=== PATIENT | female | born 1990 | race Caucasian/White ===

== ENCOUNTER 2021-02-15 22:28 | Emergency (ER) | payer BC ==
[~2021-02-15] VITALS: Ht 177.8 cm; Wt 84.1 kg
[~2021-02-15 22:28] MED LIST: APRI 0.15 MG-0.1 TAB PO; MULTIPLE VITAMI1 TAB PO; NORCO 325 MG-7.1 TAB PO; PERCOCET 325 MG1 TA2 PO; ZOFRAN 4MG T4 MG/TAB PO; ZOFRAN ODT4 MG PO
[2021-02-16] MEDS ORDERED: PERCOCET 325 MG1 TA2 PO (00:22)
[2021-02-16 00:53] VITALS: BP 139/83; PULSE 94; TEMP 97.9
== END 2021-02-16 00:53 | disposition home or self-care (01) ==
LOC: COL.ER 22:28
DX: S92.351A Displaced fracture of fifth metatarsal bone, right foot, initial encounter for closed fracture (principal); X50.1XXA Overexertion from prolonged static or awkward postures, initial encounter
CPT/HCPCS: L4386

== ENCOUNTER 2022-04-06 12:05 | Emergency (ER) | payer BC ==
[~2022-04-06] VITALS: Ht 177.8 cm; Wt 81.8 kg
[2022-04-06 12:11] VITALS: TEMP 98.2
[2022-04-06 12:43] LABS: COLLECTION METHOD CLEAN CATCH
[2022-04-06 13:16] LABS: BASO # 0.1 K/mm3 (0.0-0.2); BASO % 1.4 % (0.0-2.0); EOS # 0.1 K/mm3 (0.0-0.7); EOS % 1.2 % (0.0-4.0); GRAN # 4.3 K/mm3 (1.4-6.5); GRAN % 66.2 % (42.2-75.2); HEMATOCRIT 40.9 % (37.0-47.0); HEMOGLOBIN 13.6 g/dl (12.5-16.0); LYMPH # 1.6 K/mm3 (1.2-3.4); LYMPH % 25.3 % (20.0-51.0); MEAN CELL VOLUME 86 fl (80.0-100.0); MEAN CORPUSCULAR HEMOGLOBIN 29 pg (27-31); MEAN CORPUSCULAR HGB CONC 33 g/dl (33.0-37.0); MEAN PLATELET VOLUME 9.3 fl (7.4-10.4); MONO # 0.4 K/mm3 (0.1-0.6); MONO % 5.6 % (1.7-9.3); PLATELET COUNT 259 K/mm3 (130-400); RED BLOOD COUNT 4.74 M/mm3 (4.10-5.30)
[2022-04-06 13:20] LABS: MUCOUS Present (NOT PRESENT); URINE BACTERIA None Seen /hpf (NONE SEEN); URINE RBC 0-2 /hpf (0-2)
[2022-04-06 13:21] LABS: PH 8.5 (5.0-8.5); URINE APPEARANCE Clear (CLEAR/HAZY); URINE BLOOD Negative (NEGATIVE); URINE COLOR Yellow (YELLOW); URINE GLUCOSE Negative (NEGATIVE); URINE KETONE Negative (NEGATIVE); URINE NITRATE Negative (NEGATIVE); URINE PROTEIN(semi-quant) TRACE (NEGATIVE); URINE UROBILINOGEN 0.2 E.U/dL (0.2-1.0)
[2022-04-06 13:35] LABS: ALBUMIN 4.3 gm/dL (3.5-5.0); CALCIUM 9.5 mg/dL (8.4-10.2); CREATININE, serum 0.85 mg/dL (0.57-1.11); POTASSIUM 3.8 mmol/L (3.5-4.5); TOTAL PROTEIN 8.1 gm/dL (6.2-8.1)
[2022-04-06 15:47] VITALS: BP 119/73; PULSE 72
== END 2022-04-06 16:09 | disposition home or self-care (01) ==
LOC: COL.ER 12:05
PROVIDERS: Family Medicine; Nurse Practitioner
DX: R10.32 Left lower quadrant pain (principal); Z98.84 Bariatric surgery status; Z32.02 Encounter for pregnancy test, result negative
CPT/HCPCS: J2270; J2405; J7030; Q9967

== ENCOUNTER 2023-07-03 14:03 | Outpatient (CLI) | payer BC ==
[~2023-07-03] VITALS: Ht 177.8 cm; Wt 114.4 kg
[2023-07-03] MEDS ORDERED: LR 1,000 ML IV PRN (14:30)
--- NOTE | 2023-07-03 14:30 | NUR ---
PT ORIENTED TO UNIT AND CHANGED INTO GOWN. PLACED ON MONITORS. VS WNL. FHT'S CATAGORY 1 FOR BOTH BABIES. SHE REPORTS BACK PAIN THAT HAS COME AND GONE SINCE LAST NIGHT THAT HAS NOT BEEN RELEIVED BY ANYTHING SHE HAS TRIED. PT IS FEELING REGULAR MOVMENT FROM BOTH BABIES. SHE REPORTS NO LEAKING OF FLUID AND NO VB.
[2023-07-03 14:35] LABS: COLLECTION METHOD CLEAN CATCH
[2023-07-03 14:45] VITALS: BP 132/78; PULSE 91; TEMP 98.8
[2023-07-03 14:49] LABS: URINE APPEARANCE CLEAR (CLEAR/HAZY); URINE BLOOD NEGATIVE (NEGATIVE); URINE COLOR YELLOW (YELLOW); URINE GLUCOSE NEGATIVE (NEGATIVE); URINE KETONE NEGATIVE (NEGATIVE); URINE NITRATE NEGATIVE (NEGATIVE); URINE PROTEIN(semi-quant) NEGATIVE (NEGATIVE); URINE UROBILINOGEN 0.2 E.U/dL (0.2-1.0)
[2023-07-03 15:15] VITALS: BP 127/75; PULSE 99
[2023-07-03] MEDS ORDERED: Acetaminophen 500 MG TAB PO PRN (15:15)
[2023-07-03] MEDS ORDERED: FOCALIN10 MG PO (15:38)
[2023-07-03] MEDS ORDERED: NATURAL IRON65 MG PO (15:40)
[2023-07-03 15:45] VITALS: BP 130/76; PULSE 91
[2023-07-03] MEDS ORDERED: Terbutaline 1 MG/ML 1 ML AMP SQ ONE (16:00)
--- NOTE | 2023-07-03 16:00 | NUR ---
DR CARIAS CALLED BACK AFTER PROCEEDURE AND SPOKE WITH CHARGE. SHE ORDERED A 500ML BOLUS OF LR, THEN RUN LR AT 125 HR. SHE ALSO WANTED PT'S CERVIX CHECKED AGAIN.
[2023-07-03 16:15] VITALS: BP 137/82; PULSE 98
[2023-07-03 16:45] VITALS: BP 135/89; PULSE 117
[2023-07-03 17:15] VITALS: BP 118/70; PULSE 109
== END 2023-07-03 17:30 | disposition home or self-care (01) ==
LOC: LDRO 14:03
PROVIDERS: Obstetrics & Gynecology
DX: O99.891 Other specified diseases and conditions complicating pregnancy (principal); M54.50 Low back pain, unspecified; Z3A.28 28 weeks gestation of pregnancy
CPT/HCPCS: J3105; J7120

== ENCOUNTER 2023-09-02 10:40 | Inpatient (IN) | payer BC ==
[~2023-09-02] VITALS: Ht 177.8 cm; Wt 120.5 kg
[2023-09-02] VITALS (46 sets, daily range): BP systolic 117–174; BP diastolic 63–101; PULSE 83–104; TEMP 98–99
[~2023-09-02 10:40] MED LIST changes: +ADDERALL10 MG PO; +FOCALIN10 MG PO; +NATURAL IRON65 MG PO; +PRENATAL TABLET PO; +VITAMIN C500 MG PO
--- NOTE | 2023-09-02 10:50 | NUR ---
PT OREINTED TO ROOM AND CHANGED INTO GOWN. PT PLACED ON FHT MONITORS. BOTH BABIES CATAGORY 1 TRACING. PT REPORTED THAT SHE WOKE UP THIS MORNING AT 0200 WITH PAINFUL CX. WHEN ASKED ABOUT FLUID LEAKING SHE STATED THAT IT WAS HARD TO TELL. THAT SHE HAD BEEN URINATING ALOT TODAY AND HAD LOTS OF PRESSURE AND WAS UNABLE TO TELL WHAT WAS WHAT. THE AMNIOTEST CAME BACK POSITVE. PT ALSO REPORTED SOME BLOODY MUCUS EARLY IN THE DAY. DENIES ANY SEXUAL INTERCOURSE.
[2023-09-02] MEDS ORDERED: LR 1,000 ML IV SCH (11:15)
[2023-09-02 12:13] LABS: BASO # 0.1 K/mm3 (0.0-0.2); BASO % 0.4 % (0.0-2.0); EOS % 0.1 % (0.0-4.0); GRAN # 12.2 K/mm3 (1.4-6.5); GRAN % 87.5 % (42.2-75.2); HEMOGLOBIN 11.4 g/dl (12.5-16.0); LYMPH % 6.9 % (20.0-51.0); MEAN CELL VOLUME 84 fl (80.0-100.0); MEAN CORPUSCULAR HEMOGLOBIN 28 pg (27-31); MEAN CORPUSCULAR HGB CONC 33 g/dl (33.0-37.0); MEAN PLATELET VOLUME 10.5 fl (7.4-10.4); MONO # 0.6 K/mm3 (0.1-0.6); PLATELET COUNT 141 K/mm3 (130-400); RED BLOOD COUNT 4.12 M/mm3 (4.10-5.30); REDCELL DISTRIBUTION WIDTH-CV 18.3 % (11.5-14.5)
[2023-09-02 12:14] LABS: HEMATOCRIT 34.4 % (37.0-47.0)
[2023-09-02] MEDS ORDERED: diphenhydrAMINE 25 MG CAP PO PRN (12:30)
[2023-09-02] MEDS ORDERED: Ondansetron 4 MG/2 ML VIAL IV PRN (12:30)
[2023-09-02] MEDS ORDERED: Naloxone 0.4 MG/ML VIAL IV PRN (12:30)
[2023-09-02] MEDS ORDERED: ePHEDrine 50 MG/10 ML VIAL IV PRN (12:30)
[2023-09-02] MEDS ORDERED: diphenhydrAMINE 50 MG/ML 1 ML VIAL IV PRN (12:30)
[2023-09-02] MEDS ORDERED: ROPivacaine PF 0.2% 200 ML IV ONE (12:31)
[2023-09-02] MEDS ORDERED: Acetaminophen 500 MG TAB PO PRN (12:45)
--- NOTE | 2023-09-02 13:00 | NUR ---
DIFFICULTY TRACING CX DUE TO MATERNAL POSITION.
--- NOTE | 2023-09-02 13:45 | NUR ---
DIFFICULTY TRACING CX DUE TO MATERNAL POSITION.
[2023-09-02] MEDS ORDERED: LR & Oxytocin 500 ML IV SCH ×2 (16:45→17:00)
--- NOTE | 2023-09-02 18:17 | NUR ---
1816- BEDSIDE REPORT RECEIVED CHARTED, CARE ASSUMED. 1824- PLAN OF CARE DISCUSSED AND QUESTIONS ANSWERED. PITOCIN INCREASED TO 10MUNITS/MIN. 1829- SVE BY THIS NURSE WITH THICKER CERVIX ON PT RIGHT SIDE. 1834- PT ASSISTED TO LEFT LATERAL POSITION. COMFORT PROVIDED WITH PILLOWS AND PEANUT BALL. PT REPORTS THAT SHE DOES NOT LIKE HAVING NO FEELING IN HER LEGS AND BUTT. SHE FEELS SHE CANNOT MOVE ANYTHING AND IT MAKES HER ANXIOUS. SHE ASKS ABOUT TURNING EPIDURAL MEDICATION DOWN. REASSURED PT THAT SHE DOES HAVE MOVEMENT IN HER LEGS AND HAVING NO FEELING IS NORMAL, THE GOAL OF AN EPIDURAL. REASSURED EPIDURAL SEEMS TO BE WORKING WELL IF SHE HAS MOVEMENT AND FEELS NO PAIN. PT WILL THINK ABOUT IT. MONITORS ADJUSTED. 1856- PITOCIN INCREASED TO 12MUNITS/MIN. PT REPORTS THAT SHE STILL FEELS LIKE SHE WOULD LIKE TO HAVE HER EPIDURAL TURNED DOWN. RISKS AND BENEFITS DISCUSSED INCLUDING POSSIBLE OR OUTCOMES. PT STILL WOULD LIKE TO SEE ANESTHESIA. 1899- GILBERTO BHATTI NOTIFIED OF PT DESIRE TO TURN DOWN EPIDURAL. STATES HE WILL GO TO BEDSIDE. DR NÚÑEZ AT DESK. UPDATED ON CURRENT SVE AND PITOCIN DOSE. ALSO UPDATED ON PT DESIRE TO TURN DOWN EPIDURAL. NO NEW ORDERS AT THIS TIME. 1901- GILBERTO BHATTI AT BEDSIDE. HE TURNS DOWN EPIDURAL MEDICATION PER PT REQUEST. 1919- NURSE TO BEDSIDE. APPLE JUICE PROVIDED. PT DENIES FURTHER NEEDS AT THIS TIME.
--- NOTE | 2023-09-02 19:42 | NUR ---
1941- PITOCIN INCREASED TO 14MUNITS/MIN. PT REPORTS SHE IS STILL COMFORTABLE WITH HER EPIDURAL BUT FEELS IT IS WEARING DOWN A BIT AND SHE PREFERS THIS. URINE OUTPUT 65ML SINCE SHIFT CHANGE. PT DENIES FURTHER NEEDS AT THIS TIME. 2019- NURSE TO BEDSIDE. PLAN OF CARE DISCUSSED FOR SVE AND CHANGE IN POSITION. PT AGREEABLE WITH THIS PLAN OF CARE. SVE BY THIS NURSE 7-0. 2024- PT ASSISTED TO SITTING UP IN MIMI POSITION. POSITIONED FOR HER COMFORT WITH PILLOWS AND MONITORS ADJUSTED. 2026- PITOCIN INCREASED TO 16MUNITS/MIN. 2041- DR NÚÑEZ AT DESK AND IS UPDATED ON CURRENT SVE AND PITOCIN DOSE. NO NEW ORDERS AT THIS TIME.
--- NOTE | 2023-09-02 21:26 | NUR ---
2125- DR NÚÑEZ AT BEDSIDE, DISCUSSES PLAN OF CARE FOR SVE AND PT IS AGREEABLE. 2126- SVE BY DR NÚÑEZ 8-100/0. DR NÚÑEZ REVIEWS BLOOD PRESSURES AND STRIP AT THIS TIME. 2129- DR NÚÑEZ INSTRUCTS NURSE TO GO UP ON PITOCIN TO 18MUNITS/MIN DESPITE GOOD CERVICAL CHANGE. PITOCIN INCREASED TO 18MUNITS/MIN ORDERED.
--- NOTE | 2023-09-02 22:00 | NUR ---
2199- PT CALLS OUT WITH COMPLAINT OF PRESSURE, DR NÚÑEZ TO BEDSIDE. SVE BY DR NÚÑEZ WITH NO CHANGE. PT ENCOURAGED TO REPORT ANY FURTHER SYMPTOMS OF PRESSURE. 2204- PT ASSISTED TO TURN TO LEFT LATERAL POSITION. PT POSITIONED WITH PILLOWS FOR COMFORT. MONITORS ADJUSTED. DIFFICULT TO OBTAIN GOOD TRACING ON BABY A DUE TO MATERNAL POSITION. PT REQUESTS SOME TYLENOL FOR HEADACHE. 2229- TYLENOL FOR HEADACHE PROVIDED. MONITORS ADJUSTED, DIFFICULT TO OBTAIN GOOD TRACING ON BABY A DUE TO MATERNAL POSITION. PT DENIES FURTHER NEEDS AT THIS TIME.
--- NOTE | 2023-09-02 23:00 | NUR ---
2300- PT RESTING QUIETLY, SHE IS FEELING A LITTLE NAUSEOUS AND A BASIN IS PROVIDED. ALSO COLD WASHCLOTH. PT DENIES FURTHER NEEDS AT THIS TIME. 2310- DR NÚÑEZ TAKING HER OTHER PT FOR AND WOULD LIKE SVE ON THIS PT, NURSE TO BEDSIDE. 2315- SVE BY THIS NURSE /+2. PITOCIN TURNED OFF. PT ENCOURAGED TO CONTINUE RELAXING THROUGH HER CONTRACTIONS, SHE IS NOT FEELING RECTAL PRESSURE AT THIS TIME. REASSURED HER THAT WE WILL FORMULATE A PLAN FOR HER DELIVERY. 2320- DR NÚÑEZ UPDATED THAT PT IS COMPLETE/+2 AND HER PITOCIN IS TURNED OFF. REPORTED THAT PT IS NOT FEELING PRESSURE AT THIS TIME. PLAN OF CARE DISCUSSED WITH DR NÚÑEZ. PT WILL REMAIN IN LABOR ROOM UNTIL DR IS AVAILABLE TO LEAVE FROM THE C/S AND THEN WE WILL MOVE TO THE OR TO PUSH. 2335- PT UPDATED ON PLAN OF CARE AND ENCOURAGED TO CALL OUT WITH INCREASING PRESSURE. PT VERBALIZES UNDERSTANDING.
[2023-09-03] VITALS (48 sets, daily range): BP systolic 59–163; BP diastolic 28–110; PULSE 80–130; TEMP 97.8–98.8
--- NOTE | 2023-09-03 00:13 | NUR ---
0013- PT REPORTS SHE IS FEELING SOME PRESSURE BUT IS NOT FEELING PUSHY. PT ENCOURAGED TO CALL OUT IF NEEDED. 0040- PT STATES SHE IS STARTING TO FEEL PUSHY. SHE WOULD LIKE TO WAIT FOR DR NÚÑEZ TO GET OUT OF THE MAIN OR BUT IS OPEN TO DOING WHATEVER IS SAFE. 0045- SVE BY THIS NURSE /+3. CHARGE NURSE NOTIFIED. WILL CALL DR CHINO AND VIRI BHATTI FOR DELIVERY.
--- NOTE | 2023-09-03 00:48 | NUR ---
0048- VIRI BHATTI AND DR CHINO CALLED AND NOTIFIED OF NEED FOR THEM FOR DELIVERY.
--- NOTE | 2023-09-03 01:16 | NUR ---
0116- PT TO OR PER BED, TRANSFERRED TO OR BED. MONITORS ADJUSTED. BABY A AND BABY B TRACING SWITCHED SO THAT BABY A IS TRACING BOLDED AND BABY B IS TRACING NORMAL. PT POSITIONED IN FOOTPLATES FOR PUSHING. 0118- PT BEGINS COACHED PUSHING WITH DR NÚÑEZ AND NURSES AT BEDSIDE. VITAL SIGNS BY ANESTHESIA DURING THIS TIME. 0122- DR NÚÑEZ ORDERS PITOCIN BE RESTARTED AT 2MUNITS/MIN. PITOCIN STARTED ORDERED. PT CONTINUES TO PUSH. 0137- SPONTANEOUS VAGINAL DELIVERY OF BABY A, VIGOROUS, TO MOTHER'S ABDOMEN AND CARE OF NURSERY STAFF. PITOCIN INCREASED TO 4MUNITS/MIN PER DR NÚÑEZ'S ORDERS. 0139- DR CHINO USES BEDSIDE SONO TO VERIFY THAT BABY B IS STILL IN VERTEX POSITION. FROM NOW ON BABY B WILL TRACE IN NORMAL TRACING ON EFM. DR NÚÑEZ HAS PT CONTINUE COACHED PUSHING WITH CONTRACTIONS TO BRING BABY DOWN EVEN THOUGH SHE IS 8CM DILATED AT THIS TIME. 0150- DR NÚÑEZ PERFORMS AROM OF BABY B, CLEAR FLUID. DR NÚÑEZ HAS PT STOP PUSHING AT THIS TIME. 0152- PITOCIN INCREASED TO 6MUNITS/MIN PER DR NÚÑEZ'S ORDER. 0200- DR NÚÑEZ HAS PT PUSH WITH CONTRACTIONS. 0207- PITOCIN INCREASED TO 8MUNITS/MIN PER DR NÚÑEZ'S ORDER. 0213- DR NÚÑEZ HAS PT STOP PUSHING WITH CONTRACTIONS.
--- NOTE | 2023-09-03 02:22 | NUR ---
0222- DR NÚÑEZ OK WITH PT SITTING UP IN OR TABLE. FOOTPLATE PUT BACK UP AND PT ASSISTED TO SITTING POSIION. PT NOT PUSHIING AT THIS TIME. 0223- PITOCIN INCREASED TO 10MUNITS/MIN DIRECTED BY DR NÚÑEZ. 0230- PT ABLE TO HOLD TWIN A AT THIS TIME. ANESTHESIA NOT RECORDING BLOOD PRESSURES. NURSE TAKES BP 157/85. PT IN MIMI POSITION ON OR TABLE. 0238- PITOCIN INCREASED TO 12 MUNITS/MIN DIRECTED BY DR NÚÑEZ. PT ASSISTED TO LAY BACK ON OR TABLE WITH DR AND NURSES PRESENT IN ROOM. 0253- SVE BY DR NÚÑEZ 8-/-1. PITOCIN INCREASED TO 14MUNITS/MIN DIRECTED BY DR NÚÑEZ. NO BLOOD PRESSURE TAKEN AT THIS TIME. 0305- PT ASSISTED TO MOVE FROM OR TABLE TO LABOR BED SO SHE MAY BE POSITIONED MORE COMFORTABLY. PT POSITIONED IN RIGHT LATERAL WITH STIRRUP. MONITORS ADJUSTED. DR NÚÑEZ STILL AT BEDSIDE. 0312- PITOCIN INCREASED TO 16MUNITS/MIN DIRECTED BY DR NÚÑEZ WHO IS STILL AT BEDSIDE. 0314- STRAIGHT CATH BY DR NÚÑEZ FOR 5ML DARK FERMIN URINE. 0315- SVE BY DR NÚÑEZ /. NO BLOOD PRESSURES TAKEN DURING THIS TIME. 0325- PT ASSISTED TO LEFT LATERAL POSIION. MONITORS ADJUSTED. 0335- SVE BY DR CARMEN COMPLETE. 0338- PT ASSISTED TO OR TABLE AND LEGS IN STIRRUPS. 0340- PT BEGINS COACHED PUSHING WITH DR NÚÑEZ AT BEDSIDE. 0342- SPONTANEOUS VAGINAL DELIVERY OF VIABLE FEMALE, VIGOROUS, TO MOTHER'S ABDOMEN AND CARE OF NURSERY STAFF.
--- NOTE | 2023-09-03 03:47 | NUR ---
0347- NO ANESTHESIA BLOOD PRESSURE. NURSE TAKES BLOOD PRESSURE, 165/81. 0349- DR NÚÑEZ REPAIRS SECOND DEGREE LACERATION WHILE WAITING FOR [facility] TO DELIVER. 0402- NURSE TAKES BLOOD PRESSURE. 144/68. STILL WAITING ON DELIVERY OF PLACENTAS. 0408- DR NÚÑEZ ATTEMPTS MANUAL EXTRACTION OF PLACENTAS. PLACENTA B DELIVERS FIRST. BP 139/67. GILBERTO BHATTI CALLED BACK IN FROM HOME IN CASE OF SURGICAL NEED. 0410- PL[facility] A DELIVERS. VERY LARGE GUSH OF BLOOD AFTER DELIVERY OF PLACENTA. DR NÚÑEZ MASSAGING PT UTERUS AND IT CONTINUES TO GUSH BLOOD WITH MASSAGE. 0412- HEMABATE IM ORDERED AND GIVEN IN LL CHARTED. PT PULSE 91 AND O2 SAT 100%. 0413- DR NÚÑEZ ORDERS CYTOTEC. SHE PLACES 800MCG RECTALLY. PT UTERUS CONTINUES TO GUSH BLOOD WITH FUNDAL MASSAGE. 0414- BLOOD PRESSURE 154/64, PULSE 77. 0418- DR NÚÑEZ REPORTS QBL OF 1200ML IN DRAPE. 0419- PT REPORTS NAUSEA, ZOFRAN 4MG IV GIVEN. 0421- GILBERTO BHATTI HERE AT BEDSIDE. VITAL SIGNS AND MEDS PER ANESTHESIA NOW. 0424- DR NÚÑEZ DISCUSSES CONTINUED INCREASED BLEEDING WITH PT. RISKS AND BENEFITS OF D&C DISCUSSED AND QUESTIONS ANSWERED. PT AGREEABLE WITH PROCEEDING WITH D&C. 200ML ADDED TO QBL AT THIS TIME. 0436- LAB CALLED FOR STAT BLOOD DRAW. TRIM AND BURR OPERATOR CALLED AND UPDATED WITH CURRENT SITUATION. DR NÚÑEZ ORDERS ANESTHESIA TO GIVE TXA. D&C START. 0442- LODGING HOUSE KEEPER HERE FOR STAT BLOOD DRAW. 0445- D&C DONE. TOTAL QBL FOR DEL AND PROCEDURE 1700ML. 0450- PT ASSISTED TO LABOR BED. 0453- PT TO PACU PER LABOR BED. 0455- MODERATE GUSH OF BLOOD WITH FUNDAL EXAM, DR NÚÑEZ AT DESK AND NOTIFIED. SHE ORDERS TO GIVE SECOND DOSE OF IM HEMABATE ORDERED. 0458- HEMABATE IM GIVEN IN RIGHT LEG ORDERED AND CHARTED. 0505- IMPROVED VAGINAL BLEEDING NOTED. PT DROWSY BUT ROUSES EASILY. 0530- PT EXPERIENCING LARGE AMOUNTS OF UNCONTROLLABLE DIARRHEA. PT TURNED SIDE TO SIDE SEVERAL TIMES FOR CLEAN LINENS AND PERICARE. 0533- TRIM AND BURR OPERATOR NAVIN ASSISTS WITH START OF BLOOD TRANSFUSION. 0535- SECOND IV SITE STARTED IN RIGHT ARM. LR INFUSING. 0540- PT HAS MORE UNCONTROLLABLE BM, PERICRE AND CLEAN LINENS PROVIDED. PT EXPERIENCES LIGHT HEADEDNESS, NAUSEA, AND DECREASED OXYGEN SATURATION DURING CLEANING. BLOOD PRESSURE ALSO LOW. HEAD OF BED LOWERED. AND PT ENCOURAGED TO TAKE DEEP BREATHS. PT ABLE TO DO SO AND OXYGEN MONITOR CHANGED TO HER TOE. OXYGEN LEVEL IMPROVES QUICKLY WITH DEEP BREATHS. 0555- BLOOD PRESSURE CONTINUES TO BE LOWER BUT PT IS EASILY ROUSABLE AND ORIENTED. VAGINAL BLEEDING NORMAL AT THIS TIME. 0610- PT ALERT AND SITTING UP IN BED. SHE DENIES PAIN AT THIS TIME.
[2023-09-03] MEDS ORDERED: Tranexamic Acid 1,000 MG/10 ML VIAL ONE (04:24)
[2023-09-03] MEDS ORDERED: Oxytocin 10 UNITS/ML VIAL ONE (04:35)
[2023-09-03] MEDS ORDERED: Carboprost 250 MCG/ML AMP IM ONE ×2 (04:45→05:00)
[2023-09-03] MEDS ORDERED: miSOPROStol 200 MCG TAB RC ONE (04:45)
[2023-09-03 04:58] LABS: HEMOGLOBIN 7.4 g/dl (12.5-16.0)
--- NOTE | 2023-09-03 04:58 | NUR ---
updated on pts H&H results. Orders received to give 2 units of PRBC now.
[2023-09-03 04:59] LABS: HEMATOCRIT 22.1 % (37.0-47.0)
[2023-09-03] MEDS ORDERED: ceFAZolin 2 G in Water For Injection,Sterile 20 ML IV ONE ×2 (05:15→10:00)
[2023-09-03] MEDS ORDERED: LR 1,000 ML IV ONE (05:15)
[2023-09-03] MEDS ORDERED: Measles/Mumps/Rubella Virus Vaccine Live w Diluent 0.5 ML VIAL SQ SCH (05:15)
[2023-09-03] MEDS ORDERED: LR 1,000 ML IV SCH (05:15)
[2023-09-03] MEDS ORDERED: Diphenoxylate/Atropine 2.5-0.025 MG TAB PO PRN (05:15)
[2023-09-03] MEDS ORDERED: Loratadine 10 MG TAB PO PRN (05:15)
[2023-09-03] MEDS ORDERED: Witch Hazel 50% Pads Bulk TUB TP PRN (05:15)
[2023-09-03] MEDS ORDERED: Tranexamic Acid 1,000 MG in NS 100 ML IV ONE (05:15)
[2023-09-03] MEDS ORDERED: Naloxone 0.4 MG/ML VIAL IV PRN (05:15)
[2023-09-03] MEDS ORDERED: Mag/Al Hydrox/Simeth Susp 30 ML CUP PO PRN (05:15)
[2023-09-03] MEDS ORDERED: Magnes Hydrox (MOM) 80 MG/ML 30 ML CUP PO PRN (05:15)
[2023-09-03] MEDS ORDERED: Phenylephrine/Mineral Oil/Petrolatum 57 GM TUBE RC PRN (05:15)
[2023-09-03] MEDS ORDERED: Morphine 4 MG/ML VIAL IV PRN (05:15)
[2023-09-03] MEDS ORDERED: oxyCODONE/Acetaminophen 5-325 MG TAB PO PRN (05:15)
[2023-09-03 06:32] LABS: PROTHROMBIN TIME 11.3 SECONDS (9.7-12.8)
[2023-09-03 06:34] LABS: PARTIAL THROMBOPLASTIN TIME 27.1 SECONDS (26.0-37.0)
[2023-09-03] MEDS ORDERED: Sennosides/Docusate 8.6-50 MG TAB PO SCH (08:00)
--- NOTE | 2023-09-03 09:25 | NUR ---
JAMMIE CARE PERFORMED, GOWN CHANGED
[2023-09-03 09:46] LABS: HEMATOCRIT 28.2 % (37.0-47.0); HEMOGLOBIN 9.5 g/dl (12.5-16.0)
[2023-09-03] MEDS ORDERED: Furosemide 40 MG/4 ML VIAL IV SCH (10:11)
--- NOTE | 2023-09-03 10:57 | NUR ---
1033 WILTON WOLFF UPDATED ON PT VITAL SIGNS, URINE OUTPUT INCREASED TO 250ML/HR, 2 UNITS PACKED RBC'S & 1 UNIT FFP GIVEN, 2ND FFP THAWING, FUNDAL CHECKS GOOD, ANTIBIOTICS GIVEN, LASIX GIVEN, PT REQUESTING TO EAT. ORDERS FOR PT TO HAVE A LIGHT SNACK NOW AND WE WILL RE-EVALUATE IF SHE CAN EAT MORE AT LUNCH. DAVID BIRCH
[2023-09-03] MEDS ORDERED: Furosemide 40 MG/4 ML VIAL IV ONE (13:15)
--- NOTE | 2023-09-03 13:28 | NUR ---
1300 [facility] BEDSIDE; UPDATED ON VITAL SIGNS, FUNDAL MASSAGES, URINE OUTPUT OVER THE PAST FEW HOURS. ORDERS FOR 10 MG OF LASIX NOW, ORDERS THAT PT CAN HAVE A REGULAR DIET. ORDERS TO TRY TO AMBULATE PATIENT THIS AFTERNOON AND TO CALL MD WITH UPDATE. VERBAL ORDERS THAT PATIENT MAY HAVE 400 MG OF IBUPROFEN. DAVID BIRCH
[2023-09-03] MEDS ORDERED: PERCOCET 325 MG1 TA2 PO (13:42)
[2023-09-03] MEDS ORDERED: Ibuprofen 400 MG TAB PO PRN (13:45)
--- NOTE | 2023-09-03 17:05 | NUR ---
9236 WILTON WOLFF UPDATED ON PT VITAL SIGNS INCLUDING BLOOD PRESSURES, AFEBRILE, URINE OUTPUT, PAIN CONTROL, PT AMBULATED AROUND ROOM. ORDERS TO DISCONTINUE LOMAX AT THIS TIME AND MOVE PT OUT TO . ORDERS TO KEEP IV X2 IN UNTIL TOMORROW AM. DAVID BIRCH
[2023-09-03] MEDS ORDERED: traZODone 50 MG TAB PO PRN (21:00)
[2023-09-04 02:00] VITALS: BP 128/68; PULSE 90; TEMP 98.1
[2023-09-04 07:30] VITALS: BP 122/75; PULSE 101; TEMP 98.1
[2023-09-04 09:44] LABS: MEAN CELL VOLUME 86 fl (80.0-100.0); MEAN CORPUSCULAR HGB CONC 34 g/dl (33.0-37.0); MEAN PLATELET VOLUME 10.2 fl (7.4-10.4); PLATELET COUNT 150 K/mm3 (130-400); RED BLOOD COUNT 2.67 M/mm3 (4.10-5.30)
[2023-09-04 09:45] LABS: HEMATOCRIT 22.9 % (37.0-47.0); HEMOGLOBIN 7.7 g/dl (12.5-16.0); MEAN CORPUSCULAR HEMOGLOBIN 29 pg (27-31)
--- NOTE | 2023-09-04 09:51 | NUR ---
Initial visit attempt; Family resting, [place] Hammerer left card offering congratulations and god's blessings for the of her twin girls and information regarding the availability of Spiritual Care at our hospital.
[2023-09-04 19:34] VITALS: BP 123/80; PULSE 94; TEMP 98.4
[2023-09-04] MEDS ORDERED: Docusate Sodium 100 MG CAP PO SCH (21:00)
[2023-09-05 05:51] LABS: MEAN CELL VOLUME 86 fl (80.0-100.0); MEAN CORPUSCULAR HGB CONC 33 g/dl (33.0-37.0); MEAN PLATELET VOLUME 9.7 fl (7.4-10.4); PLATELET COUNT 202 K/mm3 (130-400); RED BLOOD COUNT 2.84 M/mm3 (4.10-5.30); REDCELL DISTRIBUTION WIDTH-CV 18.3 % (11.5-14.5)
[2023-09-05 05:55] LABS: HEMATOCRIT 24.4 % (37.0-47.0); MEAN CORPUSCULAR HEMOGLOBIN 28 pg (27-31)
[2023-09-05 06:17] LABS: ANISOCYTOSIS 2+; BAND 2 % (0-10); EOSINOPHIL 1 % (0-4); LYMPHOCYTE 31 % (20.0-51.0); NEUTROPHILS 63 % (42.0-75.2); PLATELET ESTIMATE NORMAL (NORMAL)
[2023-09-05 08:30] VITALS: BP 136/89; PULSE 92; TEMP 98.6
== END 2023-09-05 15:00 | disposition home or self-care (01) | DRG 797 ==
LOC: LDRO 10:40 → LDR 11:13 → OB 09-03 17:00
PROVIDERS: Obstetrics & Gynecology; ADMIT Student in an Organized Health Care Education/Training Program
PROC: 10E0XZZ Delivery of Products of Conception, External Approach (ICD-10-PCS; principal; 2023-09-03)
PROC: 10D17ZZ Extraction of Products of Conception, Retained, Via Natural or Artificial Opening (ICD-10-PCS; 2023-09-03)
PROC: 10D17Z9 Manual Extraction of Products of Conception, Retained, Via Natural or Artificial Opening (ICD-10-PCS; 2023-09-03)
PROC: 0KQM0ZZ Repair Perineum Muscle, Open Approach (ICD-10-PCS; 2023-09-03)
PROC: 30233N1 Transfusion of Nonautologous Red Blood Cells into Peripheral Vein, Percutaneous Approach (ICD-10-PCS; 2023-09-03)
PROC: 30233K1 Transfusion of Nonautologous Frozen Plasma into Peripheral Vein, Percutaneous Approach (ICD-10-PCS; 2023-09-03)
DX: O30.043 Twin pregnancy, dichorionic/diamniotic, third trimester (principal); D62 Acute posthemorrhagic anemia; Z37.2 Twins, both liveborn; O72.1 Other immediate postpartum hemorrhage; O99.344 Other mental disorders complicating childbirth; E55.9 Vitamin D deficiency, unspecified; O99.284 Endocrine, nutritional and metabolic diseases complicating childbirth; F90.9 Attention-deficit hyperactivity disorder, unspecified type; O99.214 Obesity complicating childbirth; O99.02 Anemia complicating childbirth; O71.89 Other specified obstetric trauma; D50.9 Iron deficiency anemia, unspecified; F32.A Depression, unspecified; O70.1 Second degree perineal laceration during delivery; Z3A.37 37 weeks gestation of pregnancy; Z23 Encounter for immunization
CPT/HCPCS: J0665; J0690; J1940; J2405; J2590; J2704; J2795; J7120; P9016